=== PATIENT | female | born 1955 | race Caucasian/White ===

== ENCOUNTER 2019-09-20 16:35 | Emergency (ER) | payer OTHER, MEDICARE ==
[~2019-09-20] VITALS: Ht 152.4 cm; Wt 59.0 kg
[2019-09-20 16:35] VITALS: BP 110/86
--- NOTE | 2019-09-20 17:59 | PHYS DOC ---
Past History Past Medical History: High Cholesterol, Hypothyroid, Other Additional Past Medical Histor: ON HORMONE THERAPY Past Surgical History: Cholecystectomy, Other Additional Past Surgical Histo: C-SPINE SURGERY Alcohol Use: None Drug Use: None Adult General Chief Complaint Chief Complaint: LOWEREXTREMITY INJURY [facility] HPI Patient is a 64-year-old female who was brought here by EMS from [facility] after she was skiing and fell down twisted her left ankle and her left knee. Patient complaint of pain in her left knee and left ankle, not able to walk. Patient denies any hip pain, no back pain, no head or neck injury. She denies any chest pain, no upper extremity pain. Patient declined pain medication at this time. aLL OTHER ros IS NEGATIVE UNLESS OTHERWISE NOTED IN hpi Review of Systems Review of Systems See above Allergies Allergies Allergies Coded Allergies Type Severity Reaction Last Updated Verified morphine Adverse Reaction Intermediate 09/20/19 Yes Physical Exam Physical Exam See above Constitutional: Well developed, well nourished, no acute distress, non-toxic appearance. [] HENT: Normocephalic, atraumatic, bilateral external ears normal, oropharynx moist, no oral exudates, nose normal. [] Eyes: PERRLA, EOMI, conjunctiva normal, no discharge. [] Neck: Normal range of motion, no tenderness, supple, no stridor. [] Cardiovascular:Heart rate regular rhythm, no murmur [] Lungs & Thorax: Bilateral breath sounds clear to auscultation [] Abdomen: Bowel sounds normal, soft, no tenderness, no masses, no pulsatile mas ses. [] Skin: Warm, dry, no erythema, no rash. [] Back: No tenderness, no CVA tenderness. [] Extremities: THERE IS TENDERNESS TO PALPATION AT BACK OF LEFT KNEE, LEFT KNEE JOINT IS STABLE, NO SWELLING, NO DEFORMITY, LEFT ANKLE IS TENDER TO PALPATION WITH MINIMAL SWELLING, NO DEFORMITY. NO PELVIC TENDER TO PALPATION. Neurologic: Alert and oriented X 3, normal motor function, normal sensory function, no focal deficits noted. [] Psychologic: Affect normal, judgement normal, mood normal. [] Current Patient Data Vital Signs Vital Signs Date Time Temp Pulse Resp B/P (MAP) Pulse Ox O2 Delivery O2 Flow Rate FiO2 09/20/19 16:35 98.0 65 16 95 Room Air EKG EKG [] Radiology/Procedures Radiology/Procedures [][address] [address] IMAGING REPORT Signed PATIENT: AIDE CHOI ACCOUNT: [id number] : 1955 LOCATION: ER AGE: 64 SEX: F EXAM STATUS: DEP ER ORD. PHYSICIAN: SP UNGER DO REASON: LEFT ANKLE INJURED FROM SKIING, LEFT KNEE PAIN PROCEDURE: KNEE LEFT 3V Left ankle 3 views portable at 1657: Reason for examination: Left knee and ankle injury from skiing. There is a small ossific density off the distal tip of the fibular malleolus and a small avulsion fracture cannot be excluded. There is also suggestion of a lucency at the posterior projection of the talus and a nondisplaced fracture cannot be excluded. No other sites of fracture or dislocation are seen. No abnormal periosteal reaction is seen. Joint spaces are maintained. No soft tissue edema is seen. IMPRESSION: Small ossific density off the distal tip of the fibula and a small avulsion fracture cannot be excluded. Lucency at the posterior talus which may reflect a nondisplaced fracture. No soft tissue edema evident however. Recommend clinical correlation follow-up. Left knee portable 3 views: No acute fracture or dislocation is evident. The bone density is normal. No abnormal periosteal reaction is seen. Joint spaces are maintained. No joint effusion is present. IMPRESSION: No acute bony abnormality at the left knee. Electronically signed by: Ashlee Orozco MD (09/20/2019 6:38 PM) [facility] DICTATED AND SIGNED BY: ASHLEE OROZCO MD DATE: 09/20/191837 CC: NON,STAFF; SP UNGER DO ~ Course & Med Decision Making Course & Med Decision Making Pertinent Labs and Imaging studies reviewed. (See chart for details) Patient sustained a sprain of her left knee and left ankle, she is fitted with knee immobilizer ON LEFT KNEE and air cast on the left ankle. SHe was given crutches to go home. Patient is from [place], she would need to follow with her family doctor over there for referral to an orthopedic surgeon for further evaluation with MRI of her left knee and left ankle. Patient declined any pain medication. Patient is amenable to plan of care, her is here to take her home. [place] Disclaimer Dragon Disclaimer This electronic medical record was generated, in whole or in part, using a voice recognition dictation system. Departure Departure: Impression: Primary Impression: Left knee sprain Additional Impression: Left ankle sprain Disposition: HOME, SELF-CARE Condition: STABLE Referrals: NON,STAFF (PCP) please follow up with your doctor to be evaluated with MRI OF YOUR LEFT KNEE AND LEFT ANKLE. Patient Instructions: Ankle Sprain, Acute, with Phase I Rehab-SportsMed, Knee Sprain Additional Instructions: PLEASE FOLLOW UP WITH YOUR DOCTOR FOR A REFERRAL TO AN ORTHOPEDIC SURGEON FOR FURTHER EVALUATION AND TREATMENT. YOU WILL NEED TO HAVE MRI OF YOUR LEFT KNEE AND ANKLE. YOU WILL NEED TO USE THE CRUTCHES WHEN YOU ARE WALKING. Problem Qualifiers SP UNGER DO Sep 20, 2019 17:58
--- NOTE | 2019-09-20 18:41 | RAD ---
Left ankle 3 views portable at 1657: Reason for examination: Left knee and ankle injury from skiing. There is a small ossific density off the distal tip of the fibular malleolus and a small avulsion fracture cannot be excluded. There is also suggestion of a lucency at the posterior projection of the talus and a nondisplaced fracture cannot be excluded. No other sites of fracture or dislocation are seen. No abnormal periosteal reaction is seen. Joint spaces are maintained. No soft tissue edema is seen. IMPRESSION: Small ossific density off the distal tip of the fibula and a small avulsion fracture cannot be excluded. Lucency at the posterior talus which may reflect a nondisplaced fracture. No soft tissue edema evident however. Recommend clinical correlation follow-up. Left knee portable 3 views: No acute fracture or dislocation is evident. The bone density is normal. No abnormal periosteal reaction is seen. Joint spaces are maintained. No joint effusion is present. IMPRESSION: No acute bony abnormality at the left knee. Electronically signed by: Ashlee Schmidt MD (09/20/2019 6:38 PM) [facility]
== END 2019-09-20 18:30 | disposition home or self-care (01) ==
LOC: ER 16:35
DX: S93.402A Sprain of unspecified ligament of left ankle, initial encounter (principal); S83.92XA Sprain of unspecified site of left knee, initial encounter; E78.00 Pure hypercholesterolemia, unspecified; E03.9 Hypothyroidism, unspecified; W18.39XA Other fall on same level, initial encounter; Y93.23 Activity, snow (alpine) (downhill) skiing, snowboarding, sledding, tobogganing and snow tubing; Y92.89 Other specified places as the place of occurrence of the external cause; Y99.8 Other external cause status; Z88.5 Allergy status to narcotic agent
CPT/HCPCS: 29505; 73562; 73610; 99284